=== PATIENT | male | born 1990 | race Caucasian/White ===

== ENCOUNTER 2023-06-23 19:13 | Observation (INO) | payer BC, SELFPAY ==
[2023-06-23] VITALS (12 sets, daily range): BP systolic 116–168; BP diastolic 74–111; PULSE 80–107; RESP 16–18; TEMP 36.5–36.6; O2SAT 97–99; BMI 33.7; BMI 44.1
--- NOTE | 2023-06-23 19:26 | CT_ITS ---
EXAM: CT brain without contrast HISTORY: Neuro deficit, acute, stroke suspected TECHNIQUE: No intravenous contrast. A radiation dose optimization technique was used for this scan. COMPARISON: None. LIMITATIONS: None. BRAIN: Normal man/white matter differentiation. VENTRICLES: No hydrocephalus. EXTRA-AXIAL SPACES: No acute hemorrhage. CALVARIUM/SKULL BASE: No acute fracture. FACE/SINUSES: No significant abnormality. SOFT TISSUES: Normal. OTHER: None. CONCLUSION: No acute intracranial abnormality. N.B. : The above Results were Read Back by Amanuel Reyna MD to Arie Cherry DO, and understanding confirmed on 06/23/2023 19:41:46 (ET). Electronically Signed: Amanuel Reyna MD at 19:41 EST , CT/STROKE Brain/Head without Cont IMPRESSION: undefined
--- NOTE | 2023-06-23 19:26 | EKG12_ITS ---
Test Reason : DYSRHYTHMIA Blood Pressure : / mmHG Vent. Rate : 087 BPM Atrial Rate : 087 BPM P-R Int : 140 ms QRS Dur : 100 ms QT Int : 364 ms P-R-T Axes : 041 -02 019 degrees QTc Int : 438 ms Normal sinus rhythm Minimal voltage criteria for LVH, may be normal variant ( R in aVL ) Borderline ECG Confirmed by LULÚ KERR, EVELYN ([id number]), international editorial producer SHARON SALAS ([id number]) on 06/30/2023 11:50:26 AM Referred By: Confirmed By:EVELYN CHINO MD
--- NOTE | 2023-06-23 19:27 | CT_ITS ---
We are attempting to reach an attending provider to discuss findings. An addendum with communication details will be sent when the communication is complete. EXAM: CT angiogram brain. HISTORY: Neuro deficit, acute, stroke suspected TECHNIQUE: CTA Head and Neck Stroke W/ Contrast (and W/O if performed). Multiplanar reconstructions and 3-D reformats were obtained. A radiation dose optimization technique was used for this scan. COMPARISON: None. LIMITATIONS: None. DISTAL CAROTID ARTERIES: No significant stenosis. ANTERIOR CEREBRAL ARTERIES: No significant stenosis. MIDDLE CEREBRAL ARTERIES: No significant stenosis. POSTERIOR CEREBRAL ARTERIES: No significant stenosis. BASILAR ARTERY: No significant stenosis. OTHER: None. CONCLUSION: No aneurysm or significant stenosis. EXAM: CT angiogram neck. HISTORY: Neuro deficit, acute, stroke suspected TECHNIQUE: CTA Head and Neck Stroke W/ Contrast (and W/O if performed). Multiplanar reconstructions and 3-D reformats were obtained. A radiation dose optimization technique was used for this scan. COMPARISON: None. LIMITATIONS: None. CAROTID ARTERIES: No significant stenosis. VERTEBRAL ARTERIES: No significant stenosis. BONES/SOFT TISSUES: No acute fracture. OTHER: None. CONCLUSION: No significant stenosis. Electronically Signed: Amanuel Reyna MD at 19:59 EST , CT/STROKE CTA Head AND Neck W/Con IMPRESSION: undefined
--- NOTE | 2023-06-23 19:31 | EDS_ITS ---
HPI History of Present Illness Chief Complaint: Neuro S/Sx Informant: patient Onset/Context/Timing Onset: Today Context: Sudden Onset Timing: Intermittent Quality and Location: Positive for Right Facial Droop, Right Face Paresthesia, Right Arm Parasthesia, Right Leg Parasthesia, Right Arm Weakness and Right Leg Weakness Onset: Today Worsened by: Nothing Relieved by: Nothing Narrative Narrative: Patient presents with intermittent right-sided weakness and numbness that has been coming and going throughout the day today. Patient states he got up and drove to work. Patient states that when he got to work he started having some right-sided numbness, right facial weakness, and weakness. Patient states he sat on the ground. Patient states that after approximately 5 minutes his symptoms resolved. Patient states he had 2 other episodes while he was at work today. Patient denies any syncopal episodes. Patient states all of his symptoms are on his right side. Patient states he was having difficulty getting out of his vehicle when he came to the emergency department tonight. [facility] Medical History GERD (gastroesophageal reflux disease) Home Medications famotidine 20 mg tablet (Acid Controller) 40 mg PO DAILY 06/23/23 [History Last Taken Unknown] Allergy/AdvReac Type Severity Reaction Status Date / Time amoxicillin Allergy Anaphylaxis Verified 06/23/23 19:20 Surgical History no surgical history no surgical history Social History (Updated 06/24/23 @ 00:[address] Yolanda Carballo DO) household members: spouse housing: house current occupation: Works in a welding shop Smoking Status: Current every day smoker tobacco type: e-cigarettes alcohol intake: current alcohol intake frequency: a few times a month Alcohol type: beer and hard liquor substance use type: does not use ROS ROS ED Constitutional Constitutional ED: Denies chills or fever(s) Eyes Eyes: Denies blurry vision or change in vision ENT ENT ED: Denies rhinorrhea or sore throat Cardiovascular Cardiovascular: Denies chest pain or palpitations Respiratory/Chest Respiratory/Chest: Denies cough or dyspnea Gastrointestinal Gastrointestinal: Denies nausea or vomiting Genitourinary Genitourinary ED: Denies dysuria or hematuria Musculoskeletal Musculoskeletal: Denies back pain or neck pain Integumentary Denies abscess or rash Neurologic Neurologic: Reports paresthesias and weakness; Denies headache(s) Allergic/Immunologic Allergic/Immunologic ED: Denies mouth swelling or urticaria EXAM Physical Exam Const Vital Signs: 06/23/23 19:16 06/23/23 19:25 06/23/23 19:34 Temperature 97.7 F L 97.9 F Temperature Source Oral Temporal Pulse Rate 98 104 H Respiratory Rate 16 16 Blood Pressure 161/109 H Blood Pressure Mean 126 Pulse Ox 99 99 Oxygen Delivery Method Room Air Room Air Room Air 06/23/23 19:30 06/23/23 20:00 06/23/23 20:30 Temperature Temperature Source Pulse Rate 97 107 H 102 H Respiratory Rate 17 18 16 Blood Pressure 144/98 H 168/111 H 143/96 H Blood Pressure Mean 113 130 111 Pulse Ox 98 99 98 Oxygen Delivery Method Room Air Room Air Room Air 06/23/23 21:00 06/23/23 21:30 06/23/23 22:00 Temperature Temperature Source Pulse Rate 80 89 81 Respiratory Rate 16 16 18 Blood Pressure 130/90 H 127/81 H 125/90 H Blood Pressure Mean 103 96 101 Pulse Ox 99 99 97 Oxygen Delivery Method Room Air Room Air Room Air 06/23/23 22:30 Temperature Temperature Source Pulse Rate 84 Respiratory Rate 16 Blood Pressure 130/74 H Blood Pressure Mean 92 Pulse Ox 98 Oxygen Delivery Method Room Air Positive well nourished and well developed General Appearance ED: well developed and NAD HEENT Reports moist mucous membranes Eyes PERRL and EOMs intact bilaterally Neck supple and no JVD Chest Wall inspection of chest normal and palpation of chest normal Resp normal respiratory effort and clear to auscultation bilaterally Cardio Rate: regular rate Rhythm: regular rhythm GI soft to palpation, non-tender and non-distended Extremity normal to inspection General Extremety ED: Negative for deformity, edema or tenderness General Extremity: Negative for deformity or edema Neuro oriented x3 and CN's II-XII intact bilaterally [place] Coma Scale: document GCS findings Spontaneous Obeys Commands Oriented 15 Sensorium / Orientation: alert Speech: speech normal Motor Exam: strength 5/5 throughout Psych mental status grossly normal NIHSS NIHSS Initial: 1a Level of Consciousness: 0 1b LOC Questions (Score 2 if aphasic/stupor): 0 1c LOC Commands (Only score 1st attempt): 0 2 Best Gaze (If aphasic, use reflexive mvmts.): 0 3 Visual: 0 4 Facial Palsy: 0 5 Motor Arm Right (UN = amputation/fusion): 0 5 Motor Arm Left: 0 6 Motor Leg Right: 0 6 Motor Leg Left: 0 7 Limb ataxia (Only + if out of proportion): 0 8 Sensory (Aphasia/stupor=0 or 1, coma=2): 1 9 Best Language: 0 10 Dysarthria (mute, coma=2, intubated=UN): 0 11 Extinction and Inattention (only scored if +): 0 Total Score: 1 MDM MDM MDM Narrative Medical decision making narrative: Stroke alert was called. Differential diagnosis includes stroke, TIA, large vessel occlusion, paresthesias, electrolyte abnormality, and atypical migraine headache. CT scan of the brain will be obtained to assess for intracranial bleeding. CTA of the head and neck will be obtained to assess for large vessel occlusion. Chest x-ray will be obtained to assess for pneumonia and pneumothor ax. CBC will be obtained to assess for leukocytosis and anemia. Basic metabolic profile will be obtained to assess for electrolyte abnormality and renal function. PT with INR and PTT will be obtained to assess for coagulopathy. High-sensitivity troponin will be obtained to assess for cardiac ischemia. EKG will be obtained to assess for cardiac dysrhythmia and cardiac ischemia. Lab Data Attestation: I reviewed the patient's lab results. Lab results narrative: CBC was reviewed and was essentially within normal limits. Basic metabolic profile was reviewed. Potassium was slightly low at 3.1. The remainder was within normal limits. PT with INR and PTT were reviewed and were within normal limits. Initial high-sensitivity troponin was reviewed and was normal at 5. Labs: Laboratory Results - last 24 hr 06/23/23 06/23/23 19:20 19:22 WBC 10.8 RBC 5.64 Hgb 16.9 H Hct 49.9 MCV 88.5 MCH 30.0 MCHC 33.9 RDW Std Deviation 42.3 RDW Coeff of Zuly 13.0 Plt Count 255 MPV 10.1 Immature Gran % (Auto) 0.200 Neut % (Auto) 50.5 Lymph % (Auto) 38.3 [place] % (Auto) 7.3 Eos % (Auto) 2.6 Baso % (Auto) 1.1 H Absolute Neuts (auto) 5.4 Absolute Lymphs (auto) 4.13 Nucleated RBC % 0 PT 13.1 INR 1.0 APTT 30.5 Sodium 139 Potassium 3.1 L Chloride 104 Carbon Dioxide 32.0 Anion Gap 3 L BUN 20 H Creatinine 1.29 Estim Creat Clear Calc 81.45 Est GFR (MDRD) Af Amer 82 Est GFR (MDRD) Non-Af 68 BUN/Creatinine Ratio 15.5 Glucose 85 Calcium 9.5 Troponin I High Sens 5 TSH 2.05 POC Glucose 109 H Radiography Chest X-Ray - ED: 1 View, Read by ED Physician, Read by Radiologist and No Acute Disease Diagnostic Testing: Clinical Impression(s) from Imaging Studies Brain CT 06/23/23 19:26 IMPRESSION: undefined ADDENDUM: 06/23/231947 IMPRESSION: undefined Head/Neck CTA 06/23/23 19:27 IMPRESSION: undefined ADDENDUM: 06/23/232005 IMPRESSION: undefined Chest X-Ray 06/23/23 20:39 IMPRESSION: No acute pulmonary disease. Electronically Signed: Amanuel Reyna MD at 21:20 EST Reading Location ID and State: [facility] / [place] Tel , Service support , CT scan of the brain was obtained. There is no acute intracranial abnormality. This was interpreted by the radiologist and was also independently reviewed by myself. CTA of the head and neck was obtained. There is no evidence of large vessel occlusion or aneurysm. This was interpreted by the radiologist and was also independently reviewed by myself. Portable 1 view chest x-ray was obtained. On my independent interpretation, lung victoria are clear. There is normal cardiac silhouette. Bony thorax is normal. There is no acute process noted. Radiologist also interpreted the x- ray and agrees. EKG Initial EKG: Attestation: I personally reviewed and interpreted this EKG as follows: Interpretation: Sinus Rhythm (87) and No Acute Injury Pattern Comments: EKG was obtained. On my independent interpretation, it showed a normal sinus rhythm with a rate of 87. TN interval, QRS interval, and QTc intervals were all normal. Harmans was normal. There are no acute ST or T wave changes. Prior EKG tracings: not available for review Prior: No Prior Management Discussion w/another healthcare provider: Hospitalist, [facility] (Dr. Hidalgo, stroke neurologist) and Radiologist Treatment and Re-Evaluation Narrative: Patient was advised of his findings. Patient was evaluated by stroke neurologist, Dr. Hidalgo. He recommended admission to the hospital for further evaluation. He does not recommend tenecteplase at this time due to his in termittent symptoms and only paresthesias at this time. After evaluation by stroke neurology, patient developed right-sided weakness again. On my reevaluation, patient was unable to elevate either eyebrow. Patient was able to smile when he laughed. Patient did not want to lift his right arm or right leg. The effort he gave is questionable. Case was discussed with the hospitalist. She will admit the patient to PCU for observation. Patient understood and was agreeable with the plan. All questions were answered. Stroke Documentation Questions Stroke Team Activated: Yes Reviewed Inclusion/Exclusion criteria: Yes Was Patient considered for Endovascular Intervention?: No-CTA negative, determined not to be an endovascular candidate IV Thrombolytic Administered: No Critical Care Time Critical Care Time: Yes Critical care time (excluding procedures): 30-74 minutes (36), Including time spent:, Discussing w/Patient &/or Family/Desk Manager, Discussing w/Consultants, Arranging Admission or Transfer and Performing Direct Patient Care at Bedside Discharge Plan Dx/Rx/DC Orders Clinical Impression: Paresthesias, Brain TIA, Stroke Disposition Disposition: Acute Care Hospital [facility] Discharge Date/Time: 06/24/23 00:19
[2023-06-23 19:33] LABS: Absolute Lymphocyte Count 4.13 X10^3/uL (0.83-4.51); Absolute Neutrophil Count 5.4 X10^3/uL (2.0-7.7); Basophil# 0.12 X10^3/uL; Basophil% 1.1 % (0-1); Eosinophil# 0.28 X10^3/uL; Eosinophils% 2.6 % (0-5); Hematocrit 49.9 % (40-54); Hemoglobin 16.9 g/dL (13.0-16.5); Lymphocyte # 4.13 X10^3/ul (0.83-4.51); Lymphocyte % 38.3 % (19-41); Mean Corp Hgb Conc 33.9 g/dL (32-36); Mean Corpuscular Volume 88.5 fL (80-94); Mean Platelet Vol. 10.1 fl (6.2-12.0); Monocyte# 0.79 X10^3/uL; Monocyte% 7.3 % (0-10); NRBC Flagged by Analyzer 0 % (0-5); Neutrophil # 5.44 X10^3/uL (2.7-7.7); Neutrophil % 50.5 % (47-70); Platelet Count 255 K/mm3 (150-450); RBC Distribution Width SD 42.3 fl (35.1-43.9); Red Blood Count 5.64 M/mm3 (4.6-6.2); White Blood Count 10.8 K/mm3 (4.4-11.0)
[2023-06-23 19:41] LABS: Bedside Glucose 109 mg/dL (74-106)
--- NOTE | 2023-06-23 19:49 | ED.RN ---
DIFFICULT TO OBTAIN CHIEF COMPLAINT UPON ARRIVAL TO ED, CONFLICTING STORIES OF SYMPTOMS FROM PT AND SPOUSE.
[2023-06-23 19:52] LABS: Partial Thromboplast Time 30.5 Seconds (24.1-36.2)
[2023-06-23 19:53] LABS: Anion Gap 3 (5-15); BUN 20 mg/dL (7-18); BUN/Creat Ratio 15.5 RATIO (10-20); Calcium,Total 9.5 mg/dL (8.5-10.1); Chloride 104 mmol/L (98-107); Creatinine, Serum 1.29 mg/dL (0.70-1.30); EST Glomerular Filtration Rate 68 mL/min (>60); Est Glom Filt Rate - Afr Amer 82 mL/min (>60); Estimated Creatinine Clearance 81.45 ml/min; Glucose 85 mg/dL (74-106); Potassium 3.1 mmol/L (3.5-5.1); Sodium Level 139 mmol/L (136-145); Troponin-I HS 5 pg/mL (3.0-78.0)
[2023-06-23 19:58] LABS: Prothrombin Time (Protime)PT. 13.1 SECONDS (11.7-14.9)
--- NOTE | 2023-06-23 20:11 | ED.RN ---
THIS RN CALLED TO ROOM, PT'S STATES HE'S HAVING ANOTHER EPISODE. PT'S SPEECH SLURRED, WHEN ASKED TO SMILE PT ONLY SMILES WITH LEFT SIDE OF FACE, ATTEMPTS TO RAISE LEFT EYEBROW, RIGHT ARM AND LEG FALL TO BED WITH N0 EFFORT AGAINST GRAVITY. PT STATES HE CAN'T MOVE THEM. MD AT BEDSIDE TO EVALUATE. PT STATES I'M NOT STAYING HERE AFTER MD ADVISED PT WOULD LIKELY BE ADMITTED FOR FURTHER WORK UP. PT'S SMILE NOTED TO BE SYMMETRICAL WHEN LAUGHING.
--- NOTE | 2023-06-23 20:39 | RAD_ITS ---
INDICATION: Neuro deficit, acute, stroke suspected EXAMINATION: Frontal view of the chest COMPARISON: None. FINDINGS: Frontal view of the chest was obtained. The cardiac silhouette is not enlarged. No confluent airspace disease. No pneumothorax. RAD/Chest 1 View IMPRESSION: No acute pulmonary disease. Electronically Signed: Amanuel Reyna MD at 21:20 EST ,
[2023-06-23] MEDS: Potassium Chloride Oral Tablet 20 MEQ 40 MEQ PO (20:55)
--- NOTE | 2023-06-23 22:30 | ECHOD_ITS ---
Reason For Study: TIA/STROKE Procedure This was a 2D Doppler, Color Flow transthoracic echocardiogram. Exam performed portable in patient room. Left Ventricle Normal left ventricle. The estimated ejection fraction is 55-60 %. Right Ventricle Normal right ventricle. Normal systolic function. Atria Normal left atrium. Normal right atrium. Cannot rule out tiny PFO. Mitral Valve The mitral valve is structurally normal. No prolapse or stenosis seen. No mitral valve insufficiency. Tricuspid Valve Normal tricuspid valve. Trivial tricuspid valve insufficiency. Aortic Valve Normal aortic valve. Pulmonic Valve The pulmonic valve is not well visualized. Great Vessels Normal aortic root. Pericardium/Pleural No pericardial effusion. Medication Performed a rapid injection of agitated mix of 9 cc saline and 1cc air to assess for atrial septal defect. MMode/2D Measurements & Calculations LVIDd: 4.3 cm IVSd: 1.2 cm Ao root diam: 3.0 cm LVIDs: 2.6 cm LVPWd: 1.3 cm FS: 39.1 % LAV(MOD-bp): 35.6 ml LVAd ap4: 21.3 cm2 SV(MOD-sp4): 30.5 ml LAV(MOD-bp) Indexed: 16.3 ml/m2 LVLd ap4: 7.1 cm LAV(MOD-sp2): 42.0 ml EDV(MOD-sp4): 54.9 ml LAV(MOD-sp4): 29.8 ml EDV(sp4-el): 54.1 ml LVAs ap4: 12.7 cm2 LVLs ap4: 5.6 cm ESV(MOD-sp4): 24.4 ml ESV(sp4-el): 24.4 ml EF(MOD-sp4): 55.6 % EF(sp4-el): 54.8 % SV(sp4-el): 29.7 ml LA A4 area: 14.0 cm2 LA dimension(2D): 3.6 cm RA A4 area: 21.2 cm2 TAPSE: 2.5 cm Time Measurements MV dec time: 0.24 sec Doppler Measurements & Calculations MV E max harley: 69.2 cm/sec Lat Peak E' Harley: 14.7 cm/sec Med Peak E' Harley: 8.9 cm/sec MV A max harley: 61.4 cm/sec E/E' lat: 4.7 E/E' med: 7.8 MV E/A: 1.1 MV V2 max: 91.3 cm/sec MV dec slope: 305.6 cm/sec2 Ao V2 max: 106.9 cm/sec MV max P.3 mmHg Ao max P.6 mmHg MV V2 mean: 62.8 cm/sec Ao V2 mean: 74.2 cm/sec MV mean P.7 mmHg Ao mean P.5 mmHg MV V2 VTI: 23.6 cm Ao V2 VTI: 21.9 cm AV (velocity ratio): 1.0 LV V1 max: 102.9 cm/sec PA V2 max: 132.3 cm/sec LV V1 max P.2 mmHg PA V2 mean: 86.2 cm/sec LV V1 mean P.1 mmHg LV V1 mean: 67.1 cm/sec LV V1 VTI: 22.7 cm ECHO/Echo Complete Interpretation Summary The estimated ejection fraction is 55-60 %. No previous study to compare Ordering Physician: Yolanda Carballo Referring Physician: SUZANNE PCP Performed By: Corrie Hussein RCS
--- NOTE | 2023-06-23 22:31 | HP.PCM.HOS_ITS ---
HPI - General General Date of Admission: 06/23/23 Date of Service: 06/23/23 Chief Complaint: Right-sided facial droop/R sided paresthesia/R sided weakness HPI Narrative BO RICHARDS, is a 32 M who presented to the emergency department at [facility] on 06/24/2023 due to right-sided weakness and paresthesias along with right-sided facial droop and some speech abnormalities that had been coming and going throughout the day. Patient reported he got up and drove to work however when he got to work he started having some right-sided numbness, facial droop and right-sided weakness. He reported he sat on the ground and this episode lasted for approximately 5 minutes and then resolved. He had 2 other episodes that were similar to this only lasted longer. He stated the shortest length of duration was 5 minutes and the longest was about 20 minutes. He has never had anything like this previously. He does not know a previous past medical history for his family as he is adopted. He does complain about a dull occipital area headache that he indicated was not like any normal headache he never had. It was not something he would really take Tylenol for but it was a very abnormal feeling in his head that has been going on for the last couple days. At the present time he has no neurological symptoms and his headache is resolved. The only medication he takes regularly is famotidine and he denies any current tobacco use although he does have a history, drinks beer maybe 1 day a week and denies any drug use. Vital signs on presentation are unremarkable. His CBC is overall unremarkable. Coags are normal. BMP shows mild hypokalemia at 3.1 but was otherwise unremarkable. Troponin was 5. TSH is 2.05. Toxicology screen is unremarkable. CT of the brain was unremarkable. CTA of the head and neck demonstrated no acute findings. Chest x-ray was unremarkable. He was evaluated by the stroke neurologist from [facility] who recommended admission for stroke work-up. NIH at the time of neurology ev aluation was 1 at the time of admission was 0. [facility] Medical History GERD (gastroesophageal reflux disease) Home Medications famotidine 20 mg tablet (Acid Controller) 40 mg PO DAILY 06/23/23 [History Last Taken Unknown] Allergy/AdvReac Type Severity Reaction Status Date / Time amoxicillin Allergy Anaphylaxis Verified 06/23/23 19:20 adopted Surgical History no surgical history no surgical history Social History (Updated 06/24/23 @ 00:[address] Yolanda Carballo DO) household members: spouse housing: house current occupation: Works in a [employer] shop Smoking Status: Former smoker alcohol intake: current alcohol intake frequency: a few times a month Alcohol type: beer and hard liquor substance use type: does not use ROS Constitutional Constitutional: Denies anorexia, change in weight, chills, fatigue, fever(s), malaise, night sweats, weakness or other Eyes Eyes: Denies blurry vision, change in eye color, change in vision, discharge from eye(s), double vision, erythema, eye pain, loss of vision or other ENT HEENT: Denies abnormal hearing, dysphagia, ear pain, epistaxis, headache(s), hearing loss, nasal congestion, nasal discharge, post nasal drip, sinus pressure, sore throat or other Cardiovascular Cardiovascular: Denies chest pain, claudication, dyspnea on exertion, edema, lightheadedness, orthopnea, palpitations, paroxysmal nocturnal dyspnea, rapid heart rate, syncope or other Respiratory/Chest Respiratory/Chest: Denies cough, dyspnea, excessive phlegm production, hemoptysis, productive cough, shortness of breath at rest, shortness of breath with exertion, wheezing or other Gastrointestinal Gastrointestinal: Denies abdominal pain, coffee ground emesis, constipation, diarrhea, dyspepsia, hematemesis, hematochezia, loose stools, melena, nausea, vomiting or other Genitourinary Genitourinary: Denies burning urination, difficulty urinating, dysuria, hematuria, nocturia, urinary frequency, urinary hesitancy, urinary incontinence, urinary urgency or other Musculoskeletal Musculoskeletal: Denies arthralgias, back pain, joint pain, joint stiffness, joint swelling, myalgias, neck pain or other Neurologic Neurologic: Reports abnormal speech, focal weakness, headache(s), numbness and paresthesias; Denies abnormal gait, confusion, disequilibrium, dizziness, seizure-like activity, seizures, syncope, tingling, tremor(s) or other Psychiatric Psychiatric: Denies anxiety, depression, homicidal ideation, suicidal ideation or other Endocrine Endocrinology: Denies change in body appearance, cold intolerance, excessive sweating, heat intolerance, polydipsia, polyuria or other Hematologic/Lymphatic Hematologic/Lymphatic: Denies anemia, easy bleeding, easy bruising, lymphadenopathy or other Allergic/Immunologic Allergic/Immunologic: Denies rhinitis, hives, eczemia, asthma or other Vital Signs Vital Signs Vital Signs: 06/23/23 19:16 06/23/23 19:25 06/23/23 19:34 Temperature 97.7 F L 97.9 F Temperature Source Oral Temporal Pulse Rate 98 104 H Respiratory Rate 16 16 Blood Pressure 161/109 H Blood Pressure Mean 126 Pulse Ox 99 99 Oxygen Delivery Method Room Air Room Air Room Air 06/23/23 19:30 06/23/23 20:00 06/23/23 20:30 Temperature Temperature Source Pulse Rate 97 107 H 102 H Respiratory Rate 17 18 16 Blood Pressure 144/98 H 168/111 H 143/96 H Blood Pressure Mean 113 130 111 Pulse Ox 98 99 98 Oxygen Delivery Method Room Air Room Air Room Air 06/23/23 21:00 06/23/23 21:30 06/23/23 22:00 Temperature Temperature Source Pulse Rate 80 89 81 Respiratory Rate 16 16 18 Blood Pressure 130/90 H 127/81 H 125/90 H Blood Pressure Mean 103 96 101 Pulse Ox 99 99 97 Oxygen Delivery Method Room Air Room Air Room Air Weight Weight: 135.624 kg Body Mass Index (BMI) 44.1 Results Lab / Micro Data 06/23/23 19:20 06/23/23 19:20 Labs: Laboratory Results - last 24 hr 06/23/23 19:20: WBC 10.8, RBC 5.64, Hgb 16.9 H, Hct 49.9, MCV 88.5, MCH 30.0, MCHC 33.9, RDW Std Deviation 42.3, RDW Coeff of Zuly 13.0, Plt Count 255, MPV 10.1, Immature Gran % (Auto) 0.200, Neut % (Auto) 50.5, Lymph % (Auto) 38.3, [place] % (Auto) 7.3, Eos % (Auto) 2.6, Baso % (Auto) 1.1 H, Absolute Neuts (auto) 5.4, Absolute Lymphs (auto) 4.13, Nucleated RBC % 0, PT 13.1, INR 1.0, APTT 30.5, Sodium 139, Potassium 3.1 L, Chloride 104, Carbon Dioxide 32.0, Anion Gap 3 L, BUN 20 H, Creatinine 1.29, Estim Creat Clear Calc 81.45, Est GFR (MDRD) Af Amer 82, Est GFR (MDRD) Non-Af 68, BUN/Creatinine Ratio 15.5, Glucose 85, Calcium 9.5, Troponin I High Sens 5 06/23/23 19:22: POC Glucose 109 H Radiology Impression Brain CT 06/23/23 19:26 IMPRESSION: undefined ADDENDUM: 06/23/231947 IMPRESSION: undefined Head/Neck CTA 06/23/23 19:27 IMPRESSION: undefined ADDENDUM: 06/23/232005 IMPRESSION: undefined Chest X-Ray 06/23/23 20:39 IMPRESSION: No acute pulmonary disease. Electronically Signed: Amanuel Reyna MD at 21:20 EST , Assessment & Plan Assessment/Plan (1) Facial droop: (2) Acute right-sided weakness: (3) Hypokalemia: PLAN: Plan Right-sided weakness/paresthesias/right-sided facial droop -CT of the brain is unremarkable -CTA of the head neck is unremarkable -Stroke protocol -We will obtain MRI with and without contrast -Check echocardiogram -Check lipid panel -Start aspirin 81 mg daily -Start atorvastatin 80 mg daily -NIH as per stroke protocol -Toxicology screen is unremarkable -TSH is within normal limits Hypokalemia -Patient was given 40 mill equivalents p.o. potassium -Repeat BMP in a.m. -Check a.m. magnesium level GERD -Continue home famotidine Morbid obesity -BMI is 44.2 -Recommend weight loss -Complicates treatment, prognosis, outcomes CODE STATUS -Full code Charges/Coding Visit Charges Inpatient E&M: 05093 Init Hosp L2
[2023-06-23 23:06] LABS: Thyroid Stim Hormone (TSH) 2.05 uIU/mL (0.358-3.74)
[2023-06-23 23:42] LABS: Amphetamine Urine VISTA NEGATIVE (<1000 ng/mL); Barbiturate Urine VISTA NEGATIVE (< 200 ng/mL); Benzodiazepine Urine VISTA NEGATIVE (< 200 ng/mL); Cocaine Urine VISTA NEGATIVE (< 300 ng/mL); Ecstacy Urine VISTA NEGATIVE (< 500 ng/mL); Methadone Urine VISTA NEGATIVE (< 300 ng/mL); PCP Urine VISTA NEGATIVE (< 25 ng/mL); THC Urine VISTA NEGATIVE (< 50 ng/mL); Vista UDS pH Range 6
[2023-06-24] VITALS (7 sets, daily range): BP systolic 119–169; BP diastolic 86–100; PULSE 84–93; RESP 14–20; TEMP 36.5–37.1; O2SAT 98–100; BMI 33.5
[2023-06-24] MEDS: Acetaminophen 325 MG Tablet 650 MG PO (05:26)
[2023-06-24 08:20] LABS: ALB/GLOB Ratio 0.9 RATIO (0.9-2.4); AST(SGOT) 19 U/L (15-37); Alanine Aminotransfer ALT/SGPT 33 U/L (16-61); Albumin, Serum 3.7 g/dL (3.2-5.0); Alkaline Phosphatase 91 U/L (45-117); Anion Gap 2 (5-15); BUN 19 mg/dL (7-18); Calcium,Total 9.1 mg/dL (8.5-10.1); Chloride 107 mmol/L (98-107); Cholesterol 177 mg/dL (200); Creatinine, Serum 1.27 mg/dL (0.70-1.30); EST Glomerular Filtration Rate 69 mL/min (>60); Est Glom Filt Rate - Afr Amer 84 mL/min (>60); Estimated Creatinine Clearance 82.73 ml/min; Globulin 4.1 g/dL (2.2-4.2); Glucose 107 mg/dL (74-106); High Density Lipoprotein 35 mg/dL; Magnesium 2.4 mg/dL (1.6-2.6); Phosphorus 1.6 mg/dL (2.5-4.9); Potassium 3.9 mmol/L (3.5-5.1); Protein, Total 7.8 g/dL (6.4-8.2); Sodium Level 140 mmol/L (136-145); Triglycerides 175 mg/dL; Very Low Density Lipoprotein 35 mg/dL (5-40)
--- NOTE | 2023-06-24 08:33 | PCM.PN.HOSP ---
Reason for Visit Reason for Visit: Diagnoses Hypokalemia (06/23/23) Facial weakness (06/23/23) Weakness (06/23/23) Subjective Subjective Patient continued to have episodes of right-sided weakness. When I went to the room, patient was stating that he could not move his right side but was actually moving his right arm. He then stated that he could not move his right side. Said he fell just weak all over when this occurs. And just last for a brief period of time has never had this problem before. Objective Data Objective Data Vital Signs: Vital Signs Temp Pulse Resp BP Pulse Ox O2 Del Method 36.5 C L 92 18 142/92 H 98 Room Air 06/24/23 05:00 06/24/23 05:00 06/24/23 05:00 06/24/23 05:00 06/24/23 07:55 06/24/23 07:55 Oxygen Delivery Method Room Air Weight: 103.1 kg Body Mass Index (BMI) 33.5 Intake & Output: Intake and Output for Last 24 Hours 06/22/23 06/23/23 06/24/23 23:59 23:59 23:59 Intake Total 500 / 500 Balance 500 / 500 Lab / Micro Data 06/24/23 06:54 06/24/23 06:54 Labs: Laboratory Results - last 24 hr 06/23/23 19:20: WBC 10.8, RBC 5.64, Hgb 16.9 H, Hct 49.9, MCV 88.5, MCH 30.0, MCHC 33.9, RDW Std Deviation 42.3, RDW Coeff of Zuly 13.0, Plt Count 255, MPV 10.1, Immature Gran % (Auto) 0.200, Neut % (Auto) 50.5, Lymph % (Auto) 38.3, [place] % (Auto) 7.3, Eos % (Auto) 2.6, Baso % (Auto) 1.1 H, Absolute Neuts (auto) 5.4, Absolute Lymphs (auto) 4.13, Nucleated RBC % 0, PT 13.1, INR 1.0, APTT 30.5, Sodium 139, Potassium 3.1 L, Chloride 104, Carbon Dioxide 32.0, Anion Gap 3 L, BUN 20 H, Creatinine 1.29, Estim Creat Clear Calc 81.45, Est GFR (MDRD) Af Amer 82, Est GFR (MDRD) Non-Af 68, BUN/Creatinine Ratio 15.5, Glucose 85, Calcium 9.5, Troponin I High Sens 5, TSH 2.05 06/23/23 19:22: POC Glucose 109 H 06/23/23 23:20: Urine Opiates Screen NEGATIVE, Urine Methadone Screen NEGATIVE, Ur Barbiturates Screen NEGATIVE, Ur Phencyclidine Scrn NEGATIVE, Ur Amphetamines Screen NEGATIVE, MDMA (Ecstasy) Screen NEGATIVE, U Benzodiazepines Scrn NEGATIVE, Urine Cocaine Screen NEGATIVE, U Cannabinoids Screen NEGATIVE, Ur Drug Screen Comment 06/24/23 06:54: Sodium 140, Potassium 3.9, Chloride 107, Carbon Dioxide 31.0, Anion Gap 2 L, BUN 19 H, Creatinine 1.27, Estim Creat Clear Calc 82.73, Est GFR (MDRD) Af Amer 84, Est GFR (MDRD) Non-Af 69, BUN/Creatinine Ratio 15.0, Glucose 107 H, Calcium 9.1, Phosphorus 1.6 L, Magnesium 2.4, Total Bilirubin 0.30, AST 19, ALT 33, Alkaline Phosphatase 91, Total Protein 7.8, Albumin 3.7, Globulin 4.1, Albumin/Globulin Ratio 0.9, Triglycerides 175, Cholesterol 177, LDL Cholesterol 107, VLDL Cholesterol 35, HDL Cholesterol 35 L Radiography Diagnostic Testing: Radiology Impression Brain CT 06/23/23 19:26 IMPRESSION: undefined ADDENDUM: 06/23/231947 IMPRESSION: undefined Head/Neck CTA 06/23/23 19:27 IMPRESSION: undefined ADDENDUM: 06/23/232005 IMPRESSION: undefined Chest X-Ray 06/23/23 20:39 IMPRESSION: No acute pulmonary disease. Electronically Signed: Amanuel Reyna MD at 21:20 EST , Physical Exam Const alert and no apparent distress Constitutional Narrative: Slightly anxious. Nontoxic. HEENT head/scalp atraumatic and moist oral mucous membranes Neuro oriented x3, CN's II-XII intact bilaterally, moves all extremities and no focal motor deficits Sensorium / Orientation: awake and alert Assessment & Plan Assessment/Plan (1) Acute right-sided weakness: PLAN: Right-sided weakness/paresthesias/right-sided facial droop. Waxes and wanes. Noted to be diaphoretic. Discussed with the patient that this is not typical of a stroke but we will follow-up on the MRI and echocardiogram. Could be an atypical presentation of seizure as well so we will check an EEG. Other possibilities, since he is having a headache, could be atypical migraine variant but it waxes and wanes very quickly. CT of the brain is unremarkable CTA of the head neck is unremarkable Talk screen negative Check MRI brain is negative, EEG negative. Liver panel showed cholesterol 177, LDL 107. Symptoms variable and not consistent with any organic cause. Concern for this being functional. MRI of the brain is negative as well as EEG. Suspect some functional component such as conversion or even malingering. (2) Hypokalemia: PLAN: Resolved after replacement (3) Hypophosphatemia: PLAN: Unclear etiology. Calcium normal Replace PLAN: Plan GERD -Continue home famotidine Morbid obesity -BMI is 44.2 -Recommend weight loss -Complicates treatment, prognosis, outcomes CODE STATUS -Full code Charges/Coding Visit Charges Inpatient E&M: 03526 Subs Hosp L2
[2023-06-24 08:43] LABS: Absolute Lymphocyte Count 2.28 X10^3/uL (0.83-4.51); Absolute Neutrophil Count 5.7 X10^3/uL (2.0-7.7); Basophil% 1.1 % (0-1); Eosinophil# 0.29 X10^3/uL; Eosinophils% 3.2 % (0-5); Hematocrit 50.3 % (40-54); Hemoglobin 16.9 g/dL (13.0-16.5); Lymphocyte # 2.28 X10^3/ul (0.83-4.51); Lymphocyte % 25.4 % (19-41); Mean Corp Hgb Conc 33.6 g/dL (32-36); Mean Corpuscular Hgb 29.9 pg (27.0-32.0); Mean Platelet Vol. 10.7 fl (6.2-12.0); Monocyte# 0.58 X10^3/uL; Monocyte% 6.5 % (0-10); NRBC Flagged by Analyzer 0 % (0-5); Neutrophil % 63.4 % (47-70); Platelet Count 263 K/mm3 (150-450); RBC Distribution Width CV 13.2 % (11.6-14.6); RBC Distribution Width SD 42.9 fl (35.1-43.9); Red Blood Count 5.65 M/mm3 (4.6-6.2)
--- NOTE | 2023-06-24 10:00 | MRI_ITS ---
EXAM: MR HEAD WITHOUT INTRAVENOUS CONTRAST CLINICAL INDICATION: R sided weakness, NUMBNESS, RT FACIAL DROOP TECHNIQUE: Multiplanar and multisequence MR images of the brain were obtained without intravenous contrast. COMPARISON: CT brain 06/23/2023 FINDINGS: BRAIN AND EXTRA-AXIAL SPACES: Normal. No intra- or extra-axial hemorrhage. No evidence of acute infarct. No intracranial mass or mass effect. There is preservation of the man/white matter interface. Posterior fossa structures are unremarkable. Ventricles are appropriate for age. No hydrocephalus. Basal cisterns are patent. SELLA: Normal. Normal sella turcica, pituitary gland, infundibular stalk, optic chiasm and hypothalamus. AUDITORY SYSTEM: Normal. The internal auditory canals are patent. BONES/JOINTS: Intact calvarium. SINUSES: Unremarkable as visualized. Clear. MASTOID AIR CELLS: Unremarkable as visualized. Clear. ORBITS: Unremarkable as visualized. Both globes, extraocular muscles, optic nerves and retrobulbar fat appear unremarkable. VASCULATURE: Unremarkable as visualized. Normal flow voids in the major intracranial circulation. MRI/Brain without Contrast IMPRESSION: Normal MRI brain without intravenous contrast. Electronically Signed: Jaguar Lara MD at 11:20 EST ,
[2023-06-24] MEDS: Enoxaparin 40 MG/0.4 ML Syringe SC (10:47)
[2023-06-24] MEDS: Aspirin 81 MG TAB.CHEW PO (10:48)
[2023-06-24] MEDS: Famotidine 20 MG Tablet 40 MG PO (10:48)
[2023-06-24] MEDS: Na Biphos/Potassium Phosphate PACKET 1 PACKET PO (14:21)
--- NOTE | 2023-06-24 14:42 | DS.PCM_ITS ---
Providers Date of Admission: 06/23/23 Primary Care Physician: NIKOLAI FAUSTIN Reason For Visit: R SIDED WEAKNESS AND FACIAL DROOP Diagnosis Discharge Diagnosis (1) Acute right-sided weakness: Status: Acute Code(s): R53.1 - Weakness Plan: Right-sided weakness/paresthesias/right-sided facial droop. Waxes and wanes. Noted to be diaphoretic. Discussed with the patient that this is not typical of a stroke but we will follow-up on the MRI and echocardiogram. Could be an atypical presentation of seizure as well so we will check an EEG. Other possibilities, since he is having a headache, could be atypical migraine variant but it waxes and wanes very quickly. CT of the brain is unremarkable CTA of the head neck is unremarkable Talk screen negative Check MRI brain is negative, EEG negative. Liver panel showed cholesterol 177, LDL 107. No stroke. Upon further discussion, this seems to be more associated with benign paroxysmal positional vertigo. Though I cannot explain the right-sided weakness that he had his sudden onset of symptoms with dizziness, diaphoresis. Patient prescription for meclizine. Patient advised to check videos out on Alana maneuvers but also have a prescription for physical therapy if needed to help with vestibular rehab. (2) Hypokalemia: Status: Acute Code(s): E87.6 - Hypokalemia Plan: Resolved after replacement (3) Hypophosphatemia: Status: Acute Code(s): E83.39 - Other disorders of phosphorus metabolism Plan: Unclear etiology. Calcium normal Replace Plan GERD -Continue home famotidine CODE STATUS -Full code Medications at Discharge Home Medications famotidine 20 mg tablet (Acid Controller) 40 mg PO DAILY 06/23/23 meclizine 25 mg tablet 25 mg PO TID PRN dizziness #15 tabs 06/24/23 Hospital Course Operations None Procedures 2-D Echocardiogram Summary of Care Provided Minutes Spent on Discharge: 42 Hospital Course: Patient presents with cute onset dizziness, diaphoresis and unsteadiness. Also complicated by right-sided weakness. Symptoms have been intermittent and severe for him. He is never had this problem before. Patient underwent MRI, EEG that were normal. This seems consistent with benign paroxysmal positional vertigo. Patient was claiming right-sided weakness with 1 of these episodes today and stated that he could not move his right side but was actually moving his right side. I discussed with the patient I think that this is benign paroxysmal positional vertigo. He states that he is under stress but there is been no new stressors as of late so this seems less likely to be functional in origin. Weight / BMI Weight Weight: 103.1 kg Body Mass Index (BMI) 33.5 ABG / Lab / Microbiology Data 06/24/23 06:54 06/24/23 06:54 Laboratory: Laboratory Results - last 24 hr 06/23/23 19:20: WBC 10.8, RBC 5.64, Hgb 16.9 H, Hct 49.9, MCV 88.5, MCH 30.0, MCHC 33.9, RDW Std Deviation 42.3, RDW Coeff of Zuly 13.0, Plt Count 255, MPV 10.1, Immature Gran % (Auto) 0.200, Neut % (Auto) 50.5, Lymph % (Auto) 38.3, [place] % (Auto) 7.3, Eos % (Auto) 2.6, Baso % (Auto) 1.1 H, Absolute Neuts (auto) 5.4, Absolute Lymphs (auto) 4.13, Nucleated RBC % 0, PT 13.1, INR 1.0, APTT 30.5, Sodium 139, Potassium 3.1 L, Chloride 104, Carbon Dioxide 32.0, Anion Gap 3 L, BUN 20 H, Creatinine 1.29, Estim Creat Clear Calc 81.45, Est GFR (MDRD) Af Amer 82, Est GFR (MDRD) Non-Af 68, BUN/Creatinine Ratio 15.5, Glucose 85, Calcium 9.5, Troponin I High Sens 5, TSH 2.05 06/23/23 19:22: POC Glucose 109 H 06/23/23 23:20: Urine Opiates Screen NEGATIVE, Urine Methadone Screen NEGATIVE, Ur Barbiturates Screen NEGATIVE, Ur Phencyclidine Scrn NEGATIVE, Ur Amphetamines Screen NEGATIVE, MDMA (Ecstasy) Screen NEGATIVE, U Benzodiazepines Scrn NEGATIVE, Urine Cocaine Screen NEGATIVE, U Cannabinoids Screen NEGATIVE, Ur Drug Screen Comment 06/24/23 06:54: WBC 9.0, RBC 5.65, Hgb 16.9 H, Hct 50.3, MCV 89.0, MCH 29.9, MCHC 33.6, RDW Std Deviation 42.9, RDW Coeff of Zuly 13.2, Plt Count 263, MPV 10.7, Immature Gran % (Auto) 0.400, Neut % (Auto) 63.4, Lymph % (Auto) 25.4, M jose a % (Auto) 6.5, Eos % (Auto) 3.2, Baso % (Auto) 1.1 H, Absolute Neuts (auto) 5.7, Absolute Lymphs (auto) 2.28, Nucleated RBC % 0, Sodium 140, Potassium 3.9, Chloride 107, Carbon Dioxide 31.0, Anion Gap 2 L, BUN 19 H, Creatinine 1.27, Estim Creat Clear Calc 82.73, Est GFR (MDRD) Af Amer 84, Est GFR (MDRD) Non-Af 69, BUN/Creatinine Ratio 15.0, Glucose 107 H, Calcium 9.1, Phosphorus 1.6 L, Magnesium 2.4, Total Bilirubin 0.30, AST 19, ALT 33, Alkaline Phosphatase 91, Total Protein 7.8, Albumin 3.7, Globulin 4.1, Albumin/Globulin Ratio 0.9, Triglycerides 175, Cholesterol 177, LDL Cholesterol 107, VLDL Cholesterol 35, HDL Cholesterol 35 L Radiography Diagnostic Testing: Radiology Impression Brain CT 06/23/23 19:26 IMPRESSION: undefined ADDENDUM: 06/23/231947 IMPRESSION: undefined Head/Neck CTA 06/23/23 19:27 IMPRESSION: undefined ADDENDUM: 06/23/232005 IMPRESSION: undefined Chest X-Ray 06/23/23 20:39 IMPRESSION: No acute pulmonary disease. Electronically Signed: Amanuel Reyna MD at 21:20 EST , Brain MRI 06/24/23 10:00 IMPRESSION: Normal MRI brain without intravenous contrast. Electronically Signed: Jaguar Lara MD at 11:20 EST , D/C Instructions Discharge Diet: No restrictions Meaningful Use Info Meaningful Use Diagnoses (Choose all that apply): None applicable Discharge Plan Admission Admit Date/Time: 06/23/23 22:24 Primary Reason for Your Visit: Vertigo Attending Provider: Arie Putnam Primary Care Provider: NIKOLAI FAUSTIN Consulting Providers: Yolanda Carballo Instructions Additional Instructions / Restrictions: You had symptoms that are concerning for vertigo. Your testing was negative for any stroke or seizure so this is not the cause of any of your symptoms including your right-sided weakness. I do recommend taking meclizine as needed for symptoms and if you do have issues regards to recurrent dizziness, I would recommend checking out videos on YouTube about performing the Alana maneuver for vertigo. Also he can follow-up with physical therapy to see if they can do specific type of therapy for this type of dizziness called vestibular rehab. Discharge Orders/Prescriptions Prescriptions: New meclizine 25 mg tablet 25 mg PO TID PRN (Reason: dizziness) Qty: 15 0RF Continued famotidine [Acid Controller] 20 mg tablet 40 mg PO DAILY Other Ambulatory Orders: Physical Therapy Evaluation (Routine) Location: None Selected Ordered By: Dr. Arie Putnam Referrals / Follow Up: NIKOLAI FAUSTIN [Other] NOT,DEFINED [Non-Staff] - Disposition Disposition (needs filled in before D/C Order can be placed): Home, Self Care Charges/Coding Visit Charges Inpatient E&M: 34711 Disch Hosp >30min
--- NOTE | 2023-06-24 14:53 | CASEMGMT ---
GARRISON GUADARRAMA NOTE: Discharge order is in. GARRISON GUADARRAMA to room. Pt sitting on edge of bed. He denies having any concerns w/going home. Kriss JONESN GARRISON GUADARRAMA
--- NOTE | 2023-06-24 15:19 | PHA.DC.MC.R ---
Pharmacy [facility] has performed discharge medication reconciliation and counseling for this patient. The patient was counseled on the following discharge medications and changes in medications for homegoing were reviewed. 1. MECLIZINE The Reason for Use, instructions for use, and potential side effects were reviewed for all new medications. The patient's questions regarding all of their medications were answered. The patient was able to verbally demonstrate an understanding of their discharge medications. The patient's discharge medication list was reviewed for discrepancies and discrepancies were resolved. The patient was counselled by Jah Kim PharmD Candidate Medications at Discharge Home Medications famotidine 20 mg tablet (Acid Controller) 40 mg PO DAILY 06/23/23 meclizine 25 mg tablet 25 mg PO TID PRN dizziness #15 tabs 06/24/23
== END 2023-06-24 16:12 | disposition home or self-care (01) ==
LOC: ED 22:23 → PCU 06-24 01:23
PROVIDERS: Admitting Provider Internal Medicine; Emergency Provider Emergency Medicine
DX: R29.810 Facial weakness (principal); E66.01 Morbid (severe) obesity due to excess calories; Z68.41 Body mass index [BMI] 40.0-44.9, adult; E87.6 Hypokalemia; R53.1 Weakness; R20.0 Anesthesia of skin; K21.9 Gastro-esophageal reflux disease without esophagitis; Z79.899 Other long term (current) drug therapy; F17.290 Nicotine dependence, other tobacco product, uncomplicated; R47.9 Unspecified speech disturbances
CPT/HCPCS: 70450; 70496; 70498; 70551; 71045; 80048; 80053; 80061; 80307; 82962; 83735; 84100; 84443; 84484; 85025; 85610; 85730; 93005; 93306; 94668; 94762; 95819; 96372; 99221; 99252; 99285; 99406; Q9967; G0378; G0463